=== PATIENT | male | born 1965 | race Caucasian/White ===

== ENCOUNTER → 2016-08-25 | Outpatient (CLI) | payer MEDICARE ==
[~2016-08-25] MED LIST: CLONAZEPAM1 MG PO; COLACE100 MG PO; ESCITALOPRAM OX10 MG PO; ESCITALOPRAM OX20 MG PO; GABAPENTIN300 MG PO; GABAPENTIN600 MG PO; LOSARTAN-HCTZ1 EAC1 PO; PERCOCET 5/31 TABLET PO; RISPERDAL2 MG PO; STRESS B1 EACH PO; TOPIRAMATE50 MG PO; TRAZODONE HCL50 MG PO; VITAMIN D-32000 UNI2 PO; ZOLPIDEM TARTRA10 MG PO
== END | disposition home or self-care (01) ==
LOC: CDC 09:06
DX: R94.31 Abnormal electrocardiogram [ECG] [EKG] (principal); S49.92XA Unspecified injury of left shoulder and upper arm, initial encounter
CPT/HCPCS: 93000

== ENCOUNTER 2016-09-05 10:21 | Day surgery (SDC) | payer OTHER ==
[~2016-09-05] VITALS: Ht 177.8 cm; Wt 145.0 kg
[~2016-09-05 10:21] MED LIST changes: +CYCLOBENZAPRINE10 MG PO; +LEXAPRO20 MG PO; +MELOXICAM15 MG PO
[2016-09-05 11:23] VITALS: BP 118/71
[2016-09-05 17:45] VITALS: BP 179/85
[2016-09-05 19:10] VITALS: BP 150/70
[2016-09-05 20:10] VITALS: BP 133/67
== END 2016-09-05 20:18 | disposition home or self-care (01) ==
LOC: SDC 10:21
DX: S46.012A Strain of muscle(s) and tendon(s) of the rotator cuff of left shoulder, initial encounter (principal); Y92.9 Unspecified place or not applicable; M75.52 Bursitis of left shoulder; I10 Essential (primary) hypertension; F31.9 Bipolar disorder, unspecified; G47.33 Obstructive sleep apnea (adult) (pediatric); Z98.84 Bariatric surgery status
CPT/HCPCS: C1713; J0171; J0330; J0690; J1100; J2250; J2370; J2405; J3010